=== PATIENT | male | born 1995 | race Caucasian/White ===

== ENCOUNTER 2017-05-23 19:41 | Observation (INO) | payer OTHER ==
[2017-05-23 20:12] LABS: % IMMATURE GRANULYOCYTES 0.6 % (0.0-1.1); ABSOLUTE IMMATURE GRANULOCYTES 0.11 10^3/uL (0.00-0.10); ADD DIFF? NO; ADD MORPH? NO; ADD SCAN? NO; ATYPICAL LYMPHOCYTE FLAG 0 (0-99); FRAGMENT RBC FLAG 0 (0-99); HEMATOCRIT 42.9 % (40.0-51.0); HEMOGLOBIN 15.1 g/dL (13.7-17.5); LEFT SHIFT FLG 0 (0-99); LIPEMIA HEMOLYSIS FLAG 90 (0-99); MEAN CELL HEMOGLOBIN 28.1 pg (27.9-34.1); MEAN CELL HEMOGLOBIN CONCENTR. 35.2 g/dL (32.4-36.7); MEAN CELL VOLUME 79.7 fL (81.5-99.8); MEAN PLATELET VOLUME 8.6 fL (8.7-11.7); PLATELET CLUMPS FLAG 0 (0-99); PLATELET COUNT 347 10^3/uL (150-400); RED BLOOD CELL COUNT 5.38 10^6/uL (4.40-6.38); RED CELL DISTRIBUTION WIDTH 12.2 % (11.5-15.2)
[2017-05-23] MEDS ORDERED: ONDANSETRON 4 MG/2 ML VIAL ONE (20:12)
--- NOTE | 2017-05-23 20:13 | EDPHY ---
H & P Stated Complaint: abd pain, nausea, x several hours Time Seen by Provider: 05/23/17 20:06 HPI/ROS: CHIEF COMPLAINT: HISTORY OF PRESENT ILLNESS: This patient is a 21 year old male complaining of shooting abdominal pains onset three hours ago. He was sitting in class and developed the pain centrally under his ribcage. He has never had similar symptoms. He went home and lay down , but his pain continued to worsen. He has vomited twice. He denies unusual food consumption or sick contacts. He denies history of abdominal problems. No recent heavy alcohol use. REVIEW OF SYSTEMS: A 10 point review of systems was performed and is negative with the exception of the elements mentioned in the history of present illness. - Personal History Current Tetanus/Diphtheria Vaccine: Unsure - Medical/Surgical History PMH: Denies. Hx Asthma: No Hx Chronic Respiratory Disease: No Hx Diabetes: No Hx Cardiac Disease: No Hx Renal Disease: No Hx Cirrhosis: No Hx Alcoholism: No Hx HIV/AIDS: No Hx Splenectomy or Spleen Trauma: No Other PMH: PMHx: denies. PSHx: denies - Social History Smoking Status: Current some day smoker Additional Social History: [employer] student. Occasional alcohol use. Occasional tobacco use. Lives in [place]. - Physical Exam Exam: General Appearance: Alert, appears uncomfortable Eyes: Pupils equal and round, no conjunctival pallor or injection ENT, Mouth: Mucous membranes moist Neck: Normal inspection Respiratory: Hyperventilating. Lungs are clear to auscultation Cardiovascular: Regular rate and rhythm Gastrointestinal: Epigastric tenderness. Abdomen is soft. Neurological: A&O, nonfocal, normal gait Skin: Warm and dry, no rash Extremities: Nontender, no pedal edema Psychiatric: Mood and affect normal Constitutional: Initial Vital Signs Temperature (C) 36.4 C 05/23/17 19:43 Heart Rate 81 05/23/17 19:43 Respiratory Rate 32 H 05/23/17 19:43 Blood Pressure 126/87 H 05/23/17 19:43 O2 Sat (%) 100 05/23/17 19:43 O2 Delivery Mode Room Air Allergies/Adverse Reactions: No Known Allergies Allergy (Unverified 05/23/17 19:43) Home Medications: Medication Instructions Recorded NK [No Known Home Meds] 05/23/17 Medical Decision Making - Diagnostics Imaging Results: Imaging Impressions Abdomen CT 05/23/17 20:43 Impression: 1. Acute appendicitis. 2. Query mild gastrojejunitis. Findings were discussed with CAREY ORTEGA MD at 22:13, on 05/23/2017. Imaging: Discussed imaging studies w/ plastic cablemaking machine operator Radiologist ED Course/Re-evaluation: 21 year old male presents with severe epigastric abdominal pain and vomiting onset three hours prior to arrival. Physical exam reveals epigastric tenderness. Plan to administer 4mg IV morphine for pain relief. Plan for labs including CBC, BMP, liver, and lipase. Plan to administer GI cocktail, Protonix for symptom relief. Labs unremarkable. 20:40 Reassessed patient, his pain has resolved, but he now complains of right lower quadrant tenderness. Plan for abdominal CT. 22:[address] Canseco, radiologist. CT positive for appendicitis. CT scan results discussed with the patient. Invanz 1 g IV given. I consulted Dr. Lind, who saw the patient in the emergency department. Patient will proceed to the OR. Differential Diagnosis: Differential diagnosis includes though it is not limited to appendicitis, cholecystitis, diverticulitis, pyelonephritis, bowel perforation, small bowel obstruction. - Data Points Laboratory Results: Laboratory Results 05/23/17 20:05 05/23/17 20:05 05/23/17 05/23/17 20:05 20:05 WBC 18.46 10^3/uL H 10^3/uL (3.80-9.50) RBC 5.38 10^6/uL 10^6/uL (4.40-6.38) Hgb 15.1 g/dL g/dL (13.7-17.5) Hct 42.9 % % (40.0-51.0) MCV 79.7 fL L fL (81.5-99.8) MCH 28.1 pg pg (27.9-34.1) MCHC 35.2 g/dL g/dL (32.4-36.7) RDW 12.2 % % (11.5-15.2) Plt Count 347 10^3/uL 10^3/uL (150-400) MPV 8.6 fL L fL (8.7-11.7) Neut % (Auto) 84.8 % H % (39.3-74.2) Lymph % (Auto) 8.8 % L % (15.0-45.0) [place] % (Auto) 5.4 % % (4.5-13.0) Eos % (Auto) 0.1 % L % (0.6-7.6) Baso % (Auto) 0.3 % % (0.3-1.7) Nucleat RBC Rel Count 0.0 % % (0.0-0.2) Absolute Neuts (auto) 15.65 10^3/uL H 10^3/uL (1.70-6.50) Absolute Lymphs (auto) 1.63 10^3/uL 10^3/uL (1.00-3.00) Absolute Monos (auto) 1.00 10^3/uL H 10^3/uL (0.30-0.80) Absolute Eos (auto) 0.02 10^3/uL L 10^3/uL (0.03-0.40) Absolute Basos (auto) 0.05 10^3/uL 10^3/uL (0.02-0.10) Absolute Nucleated RBC 0.00 10^3/uL 10^3/uL (0-0.01) Immature Gran % 0.6 % % (0.0-1.1) Immature Gran # 0.11 10^3/uL H 10^3/uL (0.00-0.10) Sodium 139 mEq/L mEq/L (134-144) Potassium 3.2 mEq/L L mEq/L (3.5-5.2) Chloride 102 mEq/L mEq/L (97-110) Carbon Dioxide 16 mEq/l L mEq/l (22-31) Anion Gap 21 mEq/L H mEq/L (8-16) BUN 12 mg/dL mg/dL (7-23) Creatinine 1.0 mg/dL mg/dL (0.7-1.3) Estimated GFR > 60 Glucose 155 mg/dL H mg/dL (70-100) Calcium 10.6 mg/dL H mg/dL (8.5-10.4) Total Bilirubin 1.3 mg/dL mg/dL (0.1-1.4) Conjugated Bilirubin 0.4 mg/dL mg/dL (0.0-0.5) Unconjugated Bilirubin 0.9 mg/dL mg/dL (0.0-1.1) AST 33 IU/L IU/L (17-59) ALT 30 IU/L IU/L (21-72) Alkaline Phosphatase 92 IU/L IU/L (38-126) Total Protein 8.7 g/dL H g/dL (6.3-8.2) Albumin 5.3 g/dL H g/dL (3.5-5.0) Lipase 108 IU/L IU/L (23-300) Medications Given: Discontinued Medications Al Hydroxide/Mg Hydroxide (Maalox Susp) 30 ml PO ONCE ONE Stop: 05/23/17 20:31 Last Admin: 05/23/17 20:45 Dose: 30 ml Hyoscyamine Sulfate (Levsin, Hyomax-Sl) 0.25 mg PO ONCE ONE Stop: 05/23/17 20:31 Last Admin: 05/23/17 20:45 Dose: 0.25 mg Pantoprazole Sodium 40 mg/ (Sodium Chloride) 100 mls @ 200 mls/hr IV EDNOW ONE Stop: 05/23/17 21:00 Last Admin: 05/23/17 20:45 Dose: 100 mls Lidocaine (Lidocaine 2% Viscous) 15 ml PO ONCE ONE Stop: 05/23/17 20:31 Last Admin: 05/23/17 20:45 Dose: 15 ml Morphine Sulfate (Morphine) 4 mg IVP EDNOW ONE Stop: 05/23/17 20:16 Last Admin: 05/23/17 20:17 Dose: 4 mg Ondansetron HCl (Zofran) 4 mg IVP EDNOW ONE Stop: 05/23/17 20:16 Last Admin: 05/23/17 20:13 Dose: 4 mg Departure - Departure Disposition: [facility] Inpatient Acute Clinical Impression: Acute appendicitis Qualifiers: Acute appendicitis type: with localized peritonitis Qualified Code(s): K35.3 - Acute appendicitis with localized peritonitis Condition: Fair Referrals: [facility]AR[facility] CURRAN [Other] - As per Instructions Gonzalez Lind MD [Medical Doctor] - As per Instructions Report Scribed for: Carey Ortega Report Scribed by: Archana Meek Date of Report: 05/23/17 Time of Report: 20:13 Physician Review and Approval Statement: 05/23/17 20:13 Portions of this note were transcribed by a medical coding technician. I personally performed a history, physical exam, medical decision making, and confirmed accuracy of information the transcribed note.
[2017-05-23] MEDS ORDERED: ONDANSETRON 4 MG/2 ML VIAL IVP ONE (20:15)
[2017-05-23 20:25] LABS: ALANINE AMINOTRANSFERASE 30 IU/L (21-72); ALBUMIN 5.3 g/dL (3.5-5.0); ALKALINE PHOSPHATASE 92 IU/L (38-126); ANION GAP 21 mEq/L (8-16); ASPARTATE AMINOTRANSFERASE 33 IU/L (17-59); BILIRUBIN,TOTAL 1.3 mg/dL (0.1-1.4); BILIRUBIN-CONJUGATED 0.4 mg/dL (0.0-0.5); BILIRUBIN-UNCONJUGATED 0.9 mg/dL (0.0-1.1); CALCIUM 10.6 mg/dL (8.5-10.4); CARBON DIOXIDE 16 mEq/l (22-31); CHLORIDE 102 mEq/L (97-110); GLOMERULAR FILTRATION RATE > 60; GLUCOSE 155 mg/dL (70-100); POTASSIUM 3.2 mEq/L (3.5-5.2); SODIUM 139 mEq/L (134-144); TOTAL PROTEIN 8.7 g/dL (6.3-8.2)
[2017-05-23] MEDS ORDERED: MAG HYDROX/AL HYDROX/SIMETH 30 ML UDCUP PO ONE (20:30)
[2017-05-23] MEDS ORDERED: HYOSCYAMINE SULFATE 0.125 MG TAB PO ONE (20:30)
[2017-05-23] MEDS ORDERED: LIDOCAINE 2% VISCOUS 15 ML UDCUP PO ONE (20:30)
[2017-05-23] MEDS ORDERED: PANTOPRAZOLE SODIUM 40 MG in NS 100 ML IV ONE (20:31)
[2017-05-23] MEDS ORDERED: IOPAMIDOL (ISOVUE-300) 100 ML BTL ONE (20:47)
[2017-05-23] MEDS ORDERED: ERTAPENEM 1 GM in NS 100 ML IV ONE (22:14)
--- NOTE | 2017-05-23 22:35 | PDGENHP ---
History and Physical - Chief Complaint abdominal pain - History of Present Illness Otherwise healthy 21yo M who began to have abd pain this afernoon while in class. Prior to this, felt well and had no complaints. In the ED, initially c/o pain in the epigastrium which radiates now to the RLQ. Denies fevers, endorses chills. No nausea or vomiting. Never had pain similar to this before History Information - Allergies/Home Medication List Allergies/Adverse Reactions: No Known Allergies Allergy (Unverified 05/23/17 19:43) Home Medications: NK [No Known Home Meds] 05/23/17 [Last Taken Unknown] I have personally reviewed and updated: family history, medical history, social history, surgical history - Past Medical History no pertinent PMH - Surgical History Reports: no pertinent surgical hx - Family History Positive for: non-pertinent - Social History Smoking Status: Current some day smoker Alcohol Use: Occasionally Drug Use: Marijuana Additional social history: student at , studying [employer] Review of Systems Review of Systems: ROS: 10pt was reviewed & negative except for what was stated in HPI & below Physical Exam Physical Exam: Temp Pulse Resp BP Pulse Ox 36.4 C 103 H 20 137/83 H 94 05/23/17 19:43 05/23/17 22:21 05/23/17 22:21 05/23/17 22:21 05/23/17 22:21 Constitutional: no apparent distress Eyes: PERRL Ears, Nose, Mouth, Throat: moist mucous membranes Cardiovascular: regular rate and rhythym Respiratory: no respiratory distress Gastrointestinal: normoactive bowel sounds, soft, non-tender abdomen, other ( ttp in the RLQ, no rebound ) Skin: warm Musculoskeletal: full muscle strength Neurologic: AAOx3 Psychiatric: interacting appropriately Lymph, Heme, Immunologic: no cervical LAD Lab Data & Imaging Review 05/23/17 20:05 05/23/17 20:05 WBC 18.46 10^3/uL (3.80-9.50) H 05/23/17 20:05 RBC 5.38 10^6/uL (4.40-6.38) 05/23/17 20:05 Hgb 15.1 g/dL (13.7-17.5) 05/23/17 20:05 Hct 42.9 % (40.0-51.0) 05/23/17 20:05 MCV 79.7 fL (81.5-99.8) L 05/23/17 20:05 MCH 28.1 pg (27.9-34.1) 05/23/17 20:05 MCHC 35.2 g/dL (32.4-36.7) 05/23/17 20:05 RDW 12.2 % (11.5-15.2) 05/23/17 20:05 Plt Count 347 10^3/uL (150-400) 05/23/17 20:05 MPV 8.6 fL (8.7-11.7) L 05/23/17 20:05 Neut % (Auto) 84.8 % (39.3-74.2) H 05/23/17 20:05 Lymph % (Auto) 8.8 % (15.0-45.0) L 05/23/17 20:05 [place] % (Auto) 5.4 % (4.5-13.0) 05/23/17 20:05 Eos % (Auto) 0.1 % (0.6-7.6) L 05/23/17 20:05 Baso % (Auto) 0.3 % (0.3-1.7) 05/23/17 20:05 Nucleat RBC Rel Count 0.0 % (0.0-0.2) 05/23/17 20:05 Absolute Neuts (auto) 15.65 10^3/uL (1.70-6.50) H 05/23/17 20:05 Absolute Lymphs (auto) 1.63 10^3/uL (1.00-3.00) 05/23/17 20:05 Absolute Monos (auto) 1.00 10^3/uL (0.30-0.80) H 05/23/17 20:05 Absolute Eos (auto) 0.02 10^3/uL (0.03-0.40) L 05/23/17 20:05 Absolute Basos (auto) 0.05 10^3/uL (0.02-0.10) 05/23/17 20:05 Absolute Nucleated RBC 0.00 10^3/uL (0-0.01) 05/23/17 20:05 Immature Gran % 0.6 % (0.0-1.1) 05/23/17 20:05 Immature Gran # 0.11 10^3/uL (0.00-0.10) H 05/23/17 20:05 Sodium 139 mEq/L (134-144) 05/23/17 20:05 Potassium 3.2 mEq/L (3.5-5.2) L 05/23/17 20:05 Chloride 102 mEq/L (97-110) 05/23/17 20:05 Carbon Dioxide 16 mEq/l (22-31) L 05/23/17 20:05 Anion Gap 21 mEq/L (8-16) H 05/23/17 20:05 BUN 12 mg/dL (7-23) 05/23/17 20:05 Creatinine 1.0 mg/dL (0.7-1.3) 05/23/17 20:05 Estimated GFR > 60 05/23/17 20:05 Glucose 155 mg/dL (70-100) H 05/23/17 20:05 Calcium 10.6 mg/dL (8.5-10.4) H 05/23/17 20:05 Total Bilirubin 1.3 mg/dL (0.1-1.4) 05/23/17 20:05 Conjugated Bilirubin 0.4 mg/dL (0.0-0.5) 05/23/17 20:05 Unconjugated Bilirubin 0.9 mg/dL (0.0-1.1) 05/23/17 20:05 AST 33 IU/L (17-59) 05/23/17 20:05 ALT 30 IU/L (21-72) 05/23/17 20:05 Alkaline Phosphatase 92 IU/L (38-126) 05/23/17 20:05 Total Protein 8.7 g/dL (6.3-8.2) H 05/23/17 20:05 Albumin 5.3 g/dL (3.5-5.0) H 05/23/17 20:05 Lipase 108 IU/L (23-300) 05/23/17 20:05 Visualized and Interpreted imaging results: Yes Interpretation: CT abdomen: acute, non perforated appendicitis Assessment & Plan Assessment: Appendicitis Plan: to OR for lap appendectomy, RBA discussed.
[2017-05-23] MEDS ORDERED: BUPIVACAINE 0.25% 30 ML SDV ONE ×2 (22:57→22:58)
[2017-05-24] MEDS ORDERED: MIDAZOLAM 2 MG/2 ML VIAL IVP ONE (00:15)
[2017-05-24] MEDS ORDERED: MIDAZOLAM 2 MG/2 ML VIAL ONE (00:15)
--- NOTE | 2017-05-24 00:18 | PDANEPAE ---
ANE History of Present Illness 21 yo with appendicitis ANE Past Medical History - Pulmonary History Hx Oxygen in Use at Home: No Hx Sleep Apnea: No - Endocrine History Hx Diabetes: No ANE Review of Systems Review of systems is: negative Review of Systems: ANE Patient History - Allergies Allergies/Adverse Reactions: No Known Allergies Allergy (Unverified 05/23/17 19:43) - Home Medications Home Medications: NK [No Known Home Meds] 05/23/17 [Last Taken Unknown] - NPO status NPO Since - Liquids (Date): 05/23/17 NPO Since - Liquids (Time): 15:30 NPO Since - Solids (Date): 05/23/17 NPO Since - Solids (Time): 13:30 - Smoking Hx Smoking Status: Current some day smoker Marijuana use: Yes - Alcohol Use Alcohol Use: Occasionally ANE Labs/Vital Signs - Labs Result Diagrams: 05/23/17 20:05 05/23/17 20:05 - Vital Signs Blood Pressure: 144/89 Heart Rate: 96 Respiratory Rate: 20 O2 Sat (%): 95 Height: 177.8 cm Weight: 68.039 kg ANE Physical Exam - Airway Neck exam: FROM Mallampati Score: Class 1 Mouth exam: normal dental/mouth exam - Pulmonary Pulmonary: no respiratory distress, clear to auscultation - Cardiovascular Cardiovascular: regular rate and rhythym - ASA Status ASA Status: II ANE Anesthesia Plan Anesthesia Plan: general endotracheal anesthesia
[2017-05-24] MEDS ORDERED: PROPOFOL 200 MG/20 ML VIAL ONE (00:32)
[2017-05-24] MEDS ORDERED: fentaNYL 100 MCG/2 ML INJ ONE ×3 (00:32→01:30)
[2017-05-24] MEDS ORDERED: fentaNYL 100 MCG/2 ML INJ IVP PRN (01:24)
[2017-05-24] MEDS ORDERED: PROMETHAZINE HCL 25 MG/ML INJ IVP PRN (01:24)
[2017-05-24] MEDS ORDERED: HYDROmorphONE/DILAUDID 1 MG/ML INJ IVP PRN (01:24)
[2017-05-24] MEDS ORDERED: ONDANSETRON 4 MG/2 ML VIAL IVP PRN ×2 (01:24)
[2017-05-24] MEDS ORDERED: NALOXONE HCL 0.4 MG/ML INJ IVP PRN (01:24)
--- NOTE | 2017-05-24 01:24 | POSTOPPROG ---
Post Op Note Date of Operation: 05/24/17 Surgeon: Gonzalez Lind Anesthesiologist: Warm Anesthesia: GET(General Endotracheal) Pre-op Diagnosis: Appendicitis Post-op Diagnosis: same Procedure: lap appy Findings: non perforated appendicitis Inf/Abcess present in the surg proc area at time of surgery?: No EBL: Minimal Specimen(s): appendix
--- NOTE | 2017-05-24 01:26 | POSTANESTH ---
Post Anesthetic Evaluation Cardiovascular Status: Normal, Stable Respiratory Status: Normal, Stable Level of Consciousness/Mental Status: Can Participate in Eval, Mildly Sleepy, Arousable Pain Control: Adequate, Prn Tx Ordered Nausea/Vomiting Control: Adequate, Prn Tx Ordered
[2017-05-24] MEDS ORDERED: D5W 1/2 NS W/ 20 KCl/L 1,000 ML IV SCH (01:30)
[2017-05-24] MEDS ORDERED: ONDANSETRON 4 MG/2 ML VIAL ONE (01:38)
[2017-05-24] MEDS ORDERED: IBUPROFEN 600 MG TAB PO SCH (06:00)
--- NOTE | 2017-05-24 06:00 | GOP ---
[f rep st] OPERATIVE REPORT DATE OF OPERATION: 05/24/2017 SURGEON: Gonzalez Lind MD RADIATION PROTECTION TECHNICIAN: None. ANESTHESIA: General endotracheal. ANESTHESIOLOGIST: Dr. Rivera. PREOPERATIVE DIAGNOSIS: Appendicitis. POSTOPERATIVE DIAGNOSIS: Appendicitis. PROCEDURE PERFORMED: Laparoscopic appendectomy. FINDINGS: Acute nonperforated indurated appendicitis. SPECIMENS: Appendix. ESTIMATED BLOOD LOSS: 5 cc. DESCRIPTION OF PROCEDURE: The patient was greeted in the preoperative suite. Once again, risks, victoria efits, and alternatives were discussed. Consent was signed. Antibiotics were given on-call to the o perating room. Once in the operative suite, a World Health Organization time-out was performed endin g with all in agreement. The patient's abdomen was then widely prepped and draped in typical sterile fashion. I entered the abdomen using the Veress needle. Infraumbilically I achieved pneumoperitone um to 15 mmHg, which was well tolerated by the patient. Through this, I inserted a 12 mm Visiport in to the abdomen. I then inserted 2 additional ports under direct visualization, one in the suprapubic and one in the left lower quadrant. I identified the appendix by tracing the taeniae inferiorly. I t was retrocecal. I identified the appendiceal base. I created a window here. Through this window with a single fire of the white load stapler I amputated the mesoappendix. An additional fire of the blue load at the appendiceal base amputated the specimen. It was then placed in an EndoCatch bag an d removed. I inspected the staple lines, which were both hemostatic and intact. I irrigated the rig ht lower quadrant with warm normal saline noting clear effluent in the suction canister. I then tran conor my ports under direct visualization. I closed my infraumbilical port with an interrupted 0 Vicry l stitch in a [id number] fashion noting excellent fascial reapproximation. The skin was then cl osed with running 4-0 Monocryl over which Dermabond was placed. The patient was then extubated in e operative suite and taken to the PACU in satisfactory condition. DRAINS: None. COUNTS: All counts were reported as correct x2. /[id number]/MODL
[2017-05-24] MEDS: HYDROCODONE/APAP 5/325 TAB PO PRN ×2 (06:20→11:30)
[2017-05-24 08:28] VITALS: BP 116/71; PULSE 80; RESP 14; TEMP 97.9; O2SAT 96
--- NOTE | 2017-05-24 10:45 | ASMTCMCOM ---
CM Note CM Note Notes: Chart reviewed, pt is 21 y/o man admitted w/ abdominal pain. Pt had his appendix removed today. Pt will most likely discharge independent when medically stable. CM available for changes. Date Signed: 05/24/2017 10:44 AM Electronically Signed By:JOSE MARIA Edwards
--- NOTE | 2017-05-24 17:03 | ASDISCHSUM ---
Discharge Information Plan Status:Home with No Needs Medically Cleared to Leave:05/24/2017 Discharge Date:05/24/2017 11:50 AM CM D/C Disposition:Home, Routine, Self-Care ADT D/C Disposition:Home, Routine, Self-Care Projected Discharge Date:05/24/2017 12:00 AM Transportation at D/C: Discharge Delay Reason: Follow-Up Date:05/24/2017 12:00 AM Discharge Slot: Final Diagnosis: Placement Information Patient Contact Information Contact Name:PHOEBE Relationship:Father Address:[address] Work Phone: City:[facility] Phone: [facility]/Zip Code:[place] [address] Email: Financial Information Financial Class:HMO and PPO Plans Primary Plan Desc:[facility] Primary Plan Number:[id number] Secondary Plan Desc: Secondary Plan Number: Assessment Information [facility] CM Progress Note CM Note CM Note Notes: Chart reviewed, pt is 21 y/o man admitted w/ abdominal pain. Pt had his appendix removed today. Pt will most likely discharge independent when medically stable. CM available for changes. Date Signed: 05/24/2017 10:44 AM Electronically Signed By:JOSE MARIA Edwards Intervention Information
== END 2017-05-24 11:50 | disposition home or self-care (01) ==
LOC: F2W 05-24 01:55
PROVIDERS: ADMIT Surgery; ATTEND Surgery
PROC: 0DTJ4ZZ Resection of Appendix, Percutaneous Endoscopic Approach (ICD-10-PCS; principal; 2017-05-23)
DX: K35.80 Unspecified acute appendicitis (principal)
CPT/HCPCS: 44970; 74177; G0378; 96374; J0171; J1335; J2250; J2405; J2704; J3010; Q9967